=== PATIENT | male | born 1985 | race Caucasian/White ===

== ENCOUNTER 2017-09-16 01:50 | Emergency (ER) | payer SELFPAY ==
[2017-09-16] MEDS ORDERED: HYDROCODONE/APAP 7.5/325 MG TAB ONE (02:22)
--- NOTE | 2017-09-16 03:02 | EDPHYS ---
Physician Documentation [facility] Name: Juan Briseno Jr Age: 32 yrs Sex: Male : 1985 Arrival Date: 09/16/2017 Time: 02:00 Bed 10 Private MD: ED Physician Edgard Guevara HPI: 09/16 02:38 This 32 yrs old Male presents to ER via Wheelchair with complaints of Stung wa by stingray on foot. 02:38 The patient presents with pain, that is acute, [place] The wa complaints affect the right foot. Context: [place]. resulted from possible stingray, Mechanism of Injury: stung the patient can partially bear weight, the patient is able to ambulate, with mild difficulty. Onset: The symptoms/episode began/occurred just prior to arrival. Modifying factors: The symptoms are alleviated by nothing, the symptoms are aggravated by nothing. Associated signs and symptoms: Pertinent negatives: calf tenderness, fever, nausea, swelling, vomiting, weakness. Severity of symptoms: At their worst the symptoms were moderate, in the emergency department the symptoms are unchanged. The patient has not experienced similar symptoms in the past. The patient has not recently seen a physician. Historical: - Allergies: 02:02 No Known Allergies; tl2 - Home Meds: 02:02 None [Active]; tl2 - PMHx: 02:02 None; tl2 - PSHx: 02:02 None; tl2 - Immunization history:: Adult Immunizations up to date. - Social history:: Smoking status: Patient uses tobacco products, smokes one-half pack cigarettes per day. - Ebola Screening: : No symptoms or risks identified at this time. - Family history:: not pertinent. ROS: 02:39 MS/extremity: Positive for erythema, pain, tenderness, of the dorsal R foot, Negative wa for contusion. 02:39 Constitutional: Negative for fever, chills, and weight loss, Eyes: Negative for injury, pain, redness, and discharge, ENT: Negative for injury, pain, and discharge, Neck: Negative for injury, pain, and swelling, Cardiovascular: Negative for chest pain, palpitations, and edema, Respiratory: Negative for shortness of breath, cough, wheezing, and pleuritic chest pain, Abdomen/GI: Negative for abdominal pain, nausea, vomiting, diarrhea, and constipation, Back: Negative for injury and pain, : Negative for injury, bleeding, discharge, and swelling, Neuro: Negative for headache, weakness, numbness, tingling, and seizure. 02:39 Skin: Positive for erythema, swelling, of the right foot. 02:39 All other systems are negative. Exam: 02:41 Constitutional: This is a well developed, well nourished patient who is awake, alert, wa and in no acute distress. Head/Face: Normocephalic, atraumatic. Eyes: Pupils equal round and reactive to light, extra-ocular motions intact. Lids and lashes normal. Conjunctiva and sclera are non-icteric and not injected. Cornea within normal limits. Periorbital areas with no swelling, redness, or edema. ENT: Nares patent. No nasal discharge, no septal abnormalities noted. Tympanic membranes are normal and external auditory canals are clear. Oropharynx with no redness, swelling, or masses, exudates, or evidence of obstruction, uvula midline. Mucous membranes moist. Neck: Trachea midline, no thyromegaly or masses palpated, and no cervical lymphadenopathy. Supple, full range of motion without nuchal rigidity, or vertebral point tenderness. No Meningismus. Cardiovascular: Regular rate and rhythm with a normal S1 and S2. No gallops, murmurs, or rubs. Normal PMI, no JVD. No pulse deficits. Respiratory: Lungs have equal breath sounds bilaterally, clear to auscultation and percussion. No rales, rhonchi or wheezes noted. No increased work of breathing, no retractions or nasal flaring. Abdomen/GI: Soft, non-tender, with normal bowel sounds. No distension or tympany. No guarding or rebound. No evidence of tenderness throughout. Back: No spinal tenderness. No costovertebral tenderness. Full range of motion. Neuro: Awake and alert, GCS 15, oriented to person, place, time, and situation. Cranial nerves II-XII grossly intact. Motor strength 5/5 in all extremities. Sensory grossly intact. Cerebellar exam normal. Normal gait. Psych: Awake, alert, with orientation to person, place and time. Behavior, mood, and affect are within normal limits. 02:41 Musculoskeletal/extremity: Extremities: grossly normal except: noted in the dorsal R foot: erythema, pain, swelling, noted darkened area representing area of sting. 02:41 Skin: injury, sting area on R dorsal foot. Vital Signs: 02:02 BP 142 / 92; Pulse 90; Resp 18; Temp 97.8(O); Pulse Ox 97% on R/A; Weight 54.43 kg; tl2 Height 6 ft. 1 in. (185.42 cm); Pain 10/10; 02:02 Body Mass Index 15.83 (54.43 kg, 185.42 cm) tl2 Procedures: 02:59 Performed lidocaine anesthesia infused close to site of sting for relief. pt tolerated wa procedure well. MDM: 02:15 Patient medically screened. nd 02:43 Differential diagnosis: sting. warm water soaks. pain meds po. check xray r/o retained wa FB. Data reviewed: vital signs, nurses notes. :59 Test interpretation: by ED physician or midlevel provider: plain radiologic studies, R wa foot x-ray: no FB. Response to treatment: the patient's symptoms have markedly improved after treatment. 09/16 02:18 Order name: Foot Right 3 View XRAY nd Administered Medications: 02:21 Drug: [place] (7.5 mg-325 mg) 1 tabs Route: PO; 03:05 Follow up: Response: No adverse reaction; Pain is unchanged, physician notified fc 03:06 Drug: Lidocaine (1 %) 5 ml {Note: by Dr Guevara.} Volume: 5 ml; Route: Infiltration; 03:14 Follow up: Response: No adverse reaction; Pain is decreased fc Disposition: 09/16/17 03:01 Discharged to Home. Impression: Acute Right foot pain secondary to sting by sting ray. - Condition is Stable. - Prescriptions for Ibuprofen 600 mg Oral Tablet - take 1 tablet by ORAL route every 6 hours As needed take with food; 30 tablet. Doxycycline Hyclate 100 mg Oral Tablet - take 1 tablet by ORAL route every 12 hours; 20 tablet. - Medication Reconciliation Form, Thank You Letter, Antibiotic Education, Prescription Opioid Use form. - Follow up: Private Physician; When: 2 - 3 days; Reason: Recheck today's complaints. - Problem is new. - Symptoms have improved. - Notes: take medicine as prescribed. follow up with your doctor for reassessment within 48 hours if symptoms do not improve Signatures: Dispatcher [employer] EDSD Liane Truong RN RN Rhonda Shelley RN RN tl2 Edgard Guevara MD MD wa Corrections: (The following items were deleted from the chart) 03:16 03:14 Ortho shoe ordered. fc 03:30 03:01 09/16/2017 03:01 Discharged to Home. Impression: Acute Right foot pain secondary fc to sting by sting ray. Condition is Stable. Forms are Medication Reconciliation Form, Thank You Letter, Antibiotic Education, Prescription Opioid Use. Follow up: Private Physician; When: 2 - 3 days; Reason: Recheck today's complaints. Problem is new. Symptoms have improved. wa
--- NOTE | 2017-09-16 03:02 | ER ---
Nurse's Notes [facility] Name: Juan Briseno Jr Age: 32 yrs Sex: Male : 1985 Arrival Date: 09/16/2017 Time: 02:00 Bed 10 Private MD: Diagnosis: Acute Right foot pain secondary to sting by sting ray Presentation: 09/16 02:01 Presenting complaint: Patient states: Got stung by a stingray on my right foot. It tl2 feels like my foot is broke and it feels numb up to my mid calf. Transition of care: patient was not received from another setting of care. Onset of symptoms was September 16, 2017 at 01:30. Risk Assessment: Do you want to hurt yourself or someone else? Patient reports no desire to harm self or others. Initial Sepsis Screen: Does the patient meet any 2 criteria? No. Patient's initial sepsis screen is negative. Does the patient have a suspected source of infection? No. Patient's initial sepsis screen is negative. Care prior to arrival: None. 02:01 Method Of Arrival: Wheelchair tl2 02:01 Acuity: ERA 3 tl2 Triage Assessment: 02:02 General: Appears in no apparent distress. uncomfortable, Behavior is cooperative, tl2 appropriate for age, anxious. Pain: Complains of pain in right foot. Historical: - Allergies: 02:02 No Known Allergies; tl2 - Home Meds: 02:02 None [Active]; tl2 - PMHx: 02:02 None; tl2 - PSHx: 02:02 None; tl2 - Immunization history:: Adult Immunizations up to date. - Social history:: Smoking status: Patient uses tobacco products, smokes one-half pack cigarettes per day. - Ebola Screening: : No symptoms or risks identified at this time. - Family history:: not pertinent. Screenin:03 Abuse screen: Denies threats or abuse. Nutritional screening: No deficits noted. tl2 Tuberculosis screening: No symptoms or risk factors identified. Fall Risk Gait- Impaired (20 pts.). Assessment: 02:16 Reassessment: Dr Guevara in room to see and examine pt. fc 02:29 General: Appears distressed, uncomfortable, Behavior is cooperative, appropriate for tl2 age, anxious. Pain: Complains of pain in right foot Pain radiates to right leg Pain currently is 10 out of 10 on a pain scale. Quality of pain is described as sharp, shooting, Noted to be guarding, moaning. Respiratory: Airway is patent Respiratory effort is even, unlabored, Respiratory pattern is regular, symmetrical. Derm: Skin is pink, warm \T\ dry. Wound noted right foot. Musculoskeletal: Circulation, motion, and sensation intact. no swelling or deformity. 02:30 Reassessment: Warm water changed. fc 02:52 Reassessment: No changes from previously documented assessment. Patient and/or family fc updated on plan of care and expected duration. Pain level reassessed. Patient is alert, oriented x 3, equal unlabored respirations, skin warm/dry/pink. Pt just rec'd xray of right foot. 03:06 Reassessment: Pt continues to have pain. Dr Guevara to numb top of foot with Lidocaine fc prior to discharge. 03:28 Reassessment: Pt given moist warm cloth to keep foot warm on the way home. States that fc the heat is the best thing. He was instructed not to place the heat right next to the skin due to burning, towel given to put between warm compress and foot. Pt and friend verbalize understanding. Vital Signs: 02:02 BP 142 / 92; Pulse 90; Resp 18; Temp 97.8(O); Pulse Ox 97% on R/A; Weight 54.43 kg; tl2 Height 6 ft. 1 in. (185.42 cm); Pain 10/10; 02:02 Body Mass Index 15.83 (54.43 kg, 185.42 cm) tl2 ED Course: 02:00 Patient arrived in ED. tl2 02:01 Triage completed. tl2 02:02 Arm band placed on right wrist. tl2 02:03 Patient has correct armband on for positive identification. tl2 02:10 Wound care: right foot soaking in warm water. fc 02:15 Edgard Guevara MD is Attending Physician. wa 02:16 No provider procedures requiring assistance completed. fc 02:54 X-ray completed. Portable x-ray completed in exam room. Patient tolerated procedure kw well. 02:55 Foot Right 3 View XRAY In Process Unspecified. EDMS 03:16 Patient did not have IV access during this emergency room visit. fc Administered Medications: 02:21 Drug: [place] (7.5 mg-325 mg) 1 tabs Route: PO; 03:05 Follow up: Response: No adverse reaction; Pain is unchanged, physician notified 03:06 Drug: Lidocaine (1 %) 5 ml {Note: by Dr Guevara.} Volume: 5 ml; Route: Infiltration; 03:14 Follow up: Response: No adverse reaction; Pain is decreased Outcome: 03:01 Discharge ordered by . leo 03:15 Discharged to home ambulatory, with friend. 03:15 Condition: good 03:15 Discharge instructions given to patient, friend, Instructed on discharge instructions, follow up and referral plans. medication usage, wound care, Demonstrated understanding of instructions, follow-up care, medications, wound care, Prescriptions given X 2. 03:30 Patient left the ED. Signatures: Dispatcher [employer] EDLiane Arellano RN RN Cinthia Doll Taylor, RN RN tl2 Edgard Guevara MD MD wa
[2017-09-16] MEDS ORDERED: LIDOCAINE 1% MPF 5 ML VIAL ONE (03:06)
--- NOTE | 2017-09-16 09:15 | RAD REPORT ---
EXAM DESCRIPTION: RAD - Foot Right 3 View - 09/16/2017 2:55 am CLINICAL HISTORY: Right foot pain status post being stung by a stingray FINDINGS: No fracture or dislocation is seen A radiopaque foreign body is not seen.
== END 2017-09-16 03:30 | disposition home or self-care (01) ==
LOC: ER 01:50
DX: M79.671 Pain in right foot (principal); W56.81XA Bitten by other nonvenomous marine animals, initial encounter; Y93.89 Activity, other specified; Y92.832 Beach as the place of occurrence of the external cause; F17.210 Nicotine dependence, cigarettes, uncomplicated
CPT/HCPCS: 99284

== ENCOUNTER 2022-07-25 14:47 | Emergency (ER) | payer SELFPAY ==
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
[2022-07-25] MEDS ORDERED: KETOROLAC 30 MG/ML INJ ONE (17:17)
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
[2022-07-25 19:34] VITALS: BP 126/89; TEMP 98.6; O2SAT 99
== END 2022-07-25 19:00 | disposition home or self-care (01) ==
LOC: ER 14:47
DX: S39.012A Strain of muscle, fascia and tendon of lower back, initial encounter (principal); S39.013A Strain of muscle, fascia and tendon of pelvis, initial encounter; S39.011A Strain of muscle, fascia and tendon of abdomen, initial encounter; F17.210 Nicotine dependence, cigarettes, uncomplicated
CPT/HCPCS: 72100; 96372; 99284